=== PATIENT | male | born 1950 | race Caucasian/White ===

== ENCOUNTER 2022-10-05 13:39 | Emergency (ER) | payer OTHER ==
--- OUTSIDE RECORDS SUMMARY | 2022-10-05 13:42 | XMS REPORT | Continuity of Care Document ---
:1950 Author Organization [facility] t Address [address] [place]. [address] [place] [address] Care Team Providers Name Role [facility] Primary Care Physician Unavailable YONAS PENALOZA Attending Clinician Unavailable YONAS PENALOZA Attending Clinician Unavailable Yonas Penaloza MD Attending Clinician Payers Payer Name Policy Type Policy Number Effective Date Expiration Date [facility] [id number] 2022 00:00:00 Problems Condition Condition Condition Status Onset Resolution Last Treating Co mments Source Name Details Category Date Date Treatment Clinician Date No known No known Disease Unive rs active active ity of problems problems [facility] Allergies, Adverse Reactions, Alerts Allergy Allergy Status Severity Reaction(s) Onset Inactive Treating Comm ents Source Name Type Date Date Clinician NO KNOWN Drug Active Univers ALLERGIE Class ity of S [facility] Social History Social Habit Start Date Stop Date Quantity Comments Source History of tobacco Cigarette Smoker University of use [facility] Exposure to 2022-02-04 2022-02-14 Not sure [facility] SARS-CoV-2 (event) 00:00:00 13:08:00 [facility] Cigarettes smoked 2022-02-14 2022-02-14 Univers ity of current (pack per 00:00:00 00:00:00 ) - Reported Branch Cigarette 2022-02-14 2022-02-14 University of pack-years 00:00:00 00:00:00 [facility] Alcohol intake 2022-02-14 2022-02-14 Ex-drinker University 00:00:00 00:00:00 (finding) [facility] Sex Assigned At [birth year] Universit y of 00:00:00 00:00:00 [facility] Smoking Status Start Date Stop Date Source Smokes tobacco daily 2022-02-14 00:00:00 Univers ity of [facility] Medications Ordered Filled Start Stop Current Ordering Indication Dosage Frequency Signature Comments Components Source Medication Medication Date Date Medication? Clinician (SIG) Name Name atorvastati 0 Yes 20mg Take 20 mg Univers n 20 mg 9-27 by mouth ity of tablet 13:33: at [place] [address] bedtime. Medical Branch donepeziL 0 Yes 10mg Take 10 mg Un jeffrey 10 mg 9-27 by mouth ity of tablet 13:33: at [place] [address] bedtime. Medical Branch finasteride 0 Yes 5mg Take 5 mg U nivers 5 mg tablet 9-27 by mouth ity of 13:33: in the [place] [address] morning. Medical Branch lisinopriL 2021-0 Yes 30mg Take 30 mg U nivers 30 mg 9-27 by mouth ity of tablet 13:33: in the [place] [address] morning. Medical Branch mirtazapine 2021-0 Yes 30mg Take 30 mg Univers 30 mg 9-27 by mouth ity of tablet 13:33: at [place] [address] bedtime. Medical Branch atorvastati 0 Yes 20mg Take 20 mg Univers n 20 mg 9-27 by mouth ity of tablet 13:33: at [place] [address] bedtime. Medical Branch donepeziL 2021-0 Yes 10mg Take 10 mg Un jeffrey 10 mg 9-27 by mouth ity of tablet 13:33: at [place] [address] bedtime. Medical Branch finasteride 2021-0 Yes 5mg Take 5 mg U nivers 5 mg tablet 9-27 by mouth ity of 13:33: in the [place] [address] morning. Medical Branch lisinopriL 2021-0 Yes 30mg Take 30 mg U nivers 30 mg 9-27 by mouth ity of tablet 13:33: in the [place] [address] morning. Medical Branch mirtazapine 2021-0 Yes 30mg Take 30 mg Univers 30 mg 9-27 by mouth ity of tablet 13:33: at [place] [address] bedtime. Medical Branch Vital Signs Vital Name Observation Time Observation Value Comments Source Systolic blood 2022-02-14 18:23:00 134 mm[Hg] Rustamer sity [facility] pressure [facility] Diastolic blood 2022-02-14 18:23:00 70 [facility]Hg[facility] Heart rate 2022-02-14 18:23:00 49 /min [facility] Body height 2022-02-14 18:23:00 188 cm [facility] Body weight 2022-02-14 18:23:00 69.854 kg [facility] BMI 2022-02-14 18:23:00 19.77 kg/m2 [facility] Oxygen saturation 2022-02-14 18:23:00 96 /min [facility] in Arterial blood [facility] anch by Pulse oximetry Procedures This patient has no known procedures. Encounters Start End Encounter Admission Attending Care Care Encounter Source Date/Time Date/Time Type Type Clinicians Facility Department ID 2022-02-14 2022-02-14 Outpatient R YONAS PENALOZA [facility] [id number] Univers 13:40:00 15:27:15 YONAS PENALOZA ely [facility] 2022-02-14 2022-02-14 Office Tremaine SDKENYATTA [id number] Univers 13:40:00 15:27:15 Visit [facility] [id number] [facility] [id number] Chencho as AZEEM?BLEA [id number] Ak kameron ALTMAN [address] [place] [address] MEDICAL OFFICE BUILDING Results This patient has no known results.
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
--- NOTE | 2022-10-05 13:56 | ER ---
Nurse's Notes [facility] Name: Milton Al Age: 72 yrs Sex: Male : 1950 Arrival Date: 10/05/2022 Time: 13:39 Bed IW2 Private MD: Diagnosis: Dementia in other diseases classified elsewhere with behavioral disturbance Presentation: 10/05 13:43 Ebola Screen: Patient denies travel to an Ebola-affected area in the 21 days before ll1 illness onset. Initial Sepsis Screen: Does the patient meet any 2 criteria? No. Patient's initial sepsis screen is negative. Does the patient have a suspected source of infection? No. Patient's initial sepsis screen is negative. Risk Assessment: Do you want to hurt yourself or someone else? Patient reports no desire to harm self or others. Onset of symptoms was October 05, 2022. 13:43 Method Of Arrival: EMS ll1 13:43 Acuity: SHINE 5 ll1 13:44 Chief complaint: Patient states: Has dementia. Was pulled over by P.D.. No complaints ll1 or injuries. 13:54 Coronavirus screen: At this time, the client does not indicate any symptoms associated ll1 with coronavirus-19. Triage Assessment: 13:53 General: Appears in no apparent distress. Behavior is calm, cooperative, appropriate ll1 for age. Pain: Denies pain. Historical: - Allergies: 13:43 No Known Allergies; ll1 - PMHx: 13:43 Dementia; Hypertensive disorder; ll1 - Immunization history:: Adult Immunizations up to date. - Social history:: Smoking status: unknown. Screenin:53 [facility] ED Fall Risk Assessment (Adult) Confusion or Disorientation Yes (5 pts) ll1 Score/Fall Risk Level 3 or more points = High Risk Oriented to surroundings, Maintained a safe environment, Educated pt \T\ family on fall prevention, incl call for assistance when getting out of bed, Provided non-skid footwear, Hourly rounding (assess needs \T\ fall precautionary measures) done. Abuse screen: Denies threats or abuse. Nutritional screening: No deficits noted. Tuberculosis screening: No symptoms or risk factors identified. Assessment: 13:52 Reassessment: No changes from previously documented assessment. Patient and/or family ll1 updated on plan of care and expected duration. Pain level reassessed. Seen by SPOOL WORKER and POA. Normal for patient. Left with verbal instructions only. Vital Signs: 13:54 ll1 13:54 stable for EMS ll1 ED Course: 13:41 Patient arrived in ED. kb 13:42 Abby Penaloza FNP-C [facility] kb 13:42 Karl Albert MD is Attending Physician. kb 13:43 Arm band placed on Patient placed in an exam room, on a stretcher. ll1 13:44 Triage completed. ll1 13:53 Patient has correct armband on for positive identification. Bed in low position. Call ll1 light in reach. Cardiac monitoring not applicable on this patient. 13:54 No provider procedures requiring assistance completed. Patient did not have IV access ll1 during this emergency room visit. Administered Medications: No medications were administered Medication: 13:55 VIS not applicable for this client. ll1 Outcome: 13:42 Discharge ordered by . kb 13:54 Discharged to home ambulatory. ll1 13:54 Condition: stable 13:54 Discharge instructions given to patient, family, Instructed on discharge instructions, follow up and referral plans. Demonstrated understanding of instructions, follow-up care, left without signing discharge instrucions. 13:55 Patient left the ED. ll1 Signatures: Abby Penaloza FNP-C FNP-Christina Steiner, RN RN ll1
== END 2022-10-05 13:55 | disposition home or self-care (01) ==
LOC: ER 13:39
DX: R41.82 Altered mental status, unspecified (principal); F02.818 Dementia in other diseases classified elsewhere, unspecified severity, with other behavioral disturbance; I10 Essential (primary) hypertension
CPT/HCPCS: 99283

== ENCOUNTER 2022-10-25 12:07 | Inpatient (IN) | payer OTHER ==
--- OUTSIDE RECORDS SUMMARY | 2022-10-25 12:32 | XMS REPORT | Continuity of Care Document ---
:1950 Author Organization [facility] t Address [address] [place] [address] [place] [id number] Care Team Providers Name Role [facility] Primary Care Physician Unavailable YONAS PENALOZA Attending Clinician Unavailable YONAS PENALOZA Attending Clinician Unavailable Yonas Penaloza MD Attending Clinician Payers Payer Name Policy Type Policy Number Effective Date Expiration Date [facility] [id number] 2022 00:00:00 Problems Condition Condition Condition Status Onset Resolution Last Treating Co mments Source Name Details Category Date Date Treatment Clinician Date No known No known Disease Unive rs active active ity of problems problems [facility] Allergies, Adverse Reactions, Alerts Allergy Allergy Status Severity Reaction(s) Onset Inactive Treating Comm ents Source Name Type Date Date Clinician NO KNOWN Drug Active Univers ALLERGIE Class ity of S [facility] Social History Social Habit Start Date Stop Date Quantity Comments Source History of tobacco Cigarette Smoker University of use [facility] Exposure to 2022-02-04 2022-02-14 Not sure [facility] SARS-CoV-2 (event) 00:00:00 13:08:00 [facility] Cigarettes smoked 2022-02-14 2022-02-14 Univers ity of current (pack per 00:00:00 00:00:00 ) - Reported Branch Cigarette 2022-02-14 2022-02-14 University of pack-years 00:00:00 00:00:00 [facility] Alcohol intake 2022-02-14 2022-02-14 Ex-drinker University 00:00:00 00:00:00 (finding) [facility] Sex Assigned At [birth year] Universit y of 00:00:00 00:00:00 [facility] Smoking Status Start Date Stop Date Source Smokes tobacco daily 2022-02-14 00:00:00 Univers ity of [facility] Medications Ordered Filled Start Stop Current Ordering Indication Dosage Frequency Signature Comments Components Source Medication Medication Date Date Medication? Clinician (SIG) Name Name atorvastati Yes 20mg Take 20 mg Univers n 20 mg 9-27 by mouth ity of tablet 13:33: at [place] [address] bedtime. Medical Branch donepeziL 0 Yes 10mg Take 10 mg Un jeffrey 10 mg 9-27 by mouth ity of tablet 13:33: at [place] [address] bedtime. Medical Branch finasteride 0 Yes 5mg Take 5 mg U nivers 5 mg tablet 9-27 by mouth ity of 13:33: in the [place] [address] morning. Medical Branch lisinopriL 2021-0 Yes 30mg Take 30 mg U nivers 30 mg 9-27 by mouth ity of tablet 13:33: in the [place] [address] morning. Medical Branch mirtazapine 2021-0 Yes 30mg Take 30 mg Univers 30 mg 9-27 by mouth ity of tablet 13:33: at [place] [address] bedtime. Medical Branch atorvastati 0 Yes 20mg Take 20 mg Univers n 20 mg 9-27 by mouth ity of tablet 13:33: at [place] [address] bedtime. Medical Branch donepeziL 2021-0 Yes 10mg Take 10 mg Un jeffrey 10 mg 9-27 by mouth ity of tablet 13:33: at [place] [address] bedtime. Medical Branch finasteride 2021-0 Yes 5mg Take 5 mg U nivers 5 mg tablet 9-27 by mouth ity of 13:33: in the [place] [address] morning. Medical Branch lisinopriL 2021-0 Yes 30mg Take 30 mg U nivers 30 mg 9-27 by mouth ity of tablet 13:33: in the [place] [address] morning. Medical Branch mirtazapine 2021-0 Yes 30mg Take 30 mg Univers 30 mg 9-27 by mouth ity of tablet 13:33: at [place] [address] bedtime. Medical Branch Vital Signs Vital Name Observation Time Observation Value Comments Source Systolic blood 2022-02-14 18:23:00 134 mm[Hg] Wilbur sitely [facility] Diastolic blood 2022-02-14 18:23:00 70 mm[Hg] Lilliana rsmariya [facility] Heart rate 2022-02-14 18:23:00 49 /min [facility] Body height 2022-02-14 18:23:00 188 cm [facility] Body weight 2022-02-14 18:23:00 69.854 kg [facility] BMI 2022-02-14 18:23:00 19.77 kg/m2 [facility] Oxygen saturation 2022-02-14 18:23:00 96 /min [facility] in Arterial blood [facility] anch by Pulse oximetry Procedures This patient has no known procedures. Encounters Start End Encounter Admission Attending Care Care Encounter Source Date/Time Date/Time Type Type Clinicians Facility Department ID 2022-02-14 2022-02-14 Outpatient R YONAS PENALOZA [facility] [id number] Univers 13:40:00 15:27:15 YONAS PENALOZA [facility] 2022-02-14 2022-02-14 Office Tremaine [facility] [id number] Univers 13:40:00 15:27:15 Visit Yonas [facility] [id number] mariya issa [facility] [id number] Chencho as AZEEM?BLEA [id number] Ri [address] MEDICAL OFFICE BUILDING Results This patient has no known results.
[2022-10-25] MEDS ORDERED: MORPHINE 4 MG/ML SYR ONE ×2 (12:43→16:55)
[2022-10-25] MEDS ORDERED: ONDANSETRON 4 MG/2 ML VIAL ONE (12:43)
[2022-10-25 13:09] LABS: Absolute Lymphocytes (CBC) 1.1 K/uL (0.7-4.9); Hematocrit 35.2 % (39.6-49.0); Lymphocytes % 7.4 % (15.3-44.8); MCV 98.8 fL (80-100); MPV 8.4 fL (7.6-11.3); RBC Red Blood Cell Count 3.56 M/uL (4.33-5.43)
[2022-10-25 13:15] LABS: Protime INR 1.02
[2022-10-25 13:20] LABS: Potassium 4.4 mEq/L (3.5-5.1)
[2022-10-25 13:53] LABS: Blood Morphology Comment NOT SEEN (NOT SEEN); Platelet Estimate ADEQ; White Blood Cell Scan OK (OK)
--- NOTE | 2022-10-25 14:19 | EDPHYS ---
Physician Documentation [facility] Name: Milton Al Age: 72 yrs Sex: Male : 1950 Arrival Date: 10/25/2022 Time: 12:07 Bed 26 Private MD: ED Physician Haja Redding Historical: - Allergies: 10/25 12:13 No Known Allergies; kc6 - PMHx: 12:13 Dementia; Hypertensive disorder; prostate problems; Hypercholesterolemia; kc6 - PSHx: 12:13 None; kc6 - Immunization history:: Adult Immunizations unknown. - Social history:: Smoking status: unknown. Vital Signs: 12:11 BP 149 / 43; Pulse 90; Resp 18 S; Temp 98.6(O); Pulse Ox 98% on R/A; kc6 13:35 BP 133 / 60; Pulse 51; Resp 17 S; Pulse Ox 99% on R/A; kc6 MDM: 12:22 Patient medically screened. [facility] 10/25 12:30 Order name: CBC with Diff; Complete Time: 13:55 [facility] 10/25 12:30 Order name: BMP; Complete Time: 13:34 [facility] 10/25 12:30 Order name: PT-INR; Complete Time: 13:34 [facility] 10/25 12:33 Order name: CPK; Complete Time: 14:25 [facility] 10/25 13:54 Order name: CBC Smear Scan; Complete Time: 13:55 [facility] 10/25 17:00 Order name: Phosphorus; Complete Time: 17:04 [facility] 10/25 17:00 Order name: Magnesium; Complete Time: 17:04 [facility] 10/25 17:10 Order name: Hemoglobin A1c; Complete Time: 17:14 [facility] 10/25 18:50 Order name: Urinalysis w/ reflexes; Complete Time: 08:02 [facility] 10/26 02:47 Order name: CBC with Automated Diff; Complete Time: 08:02 [facility] 10/26 02:48 Order name: Basic Metabolic Panel; Complete Time: 08:02 [facility] 10/26 02:48 Order name: Lipid Profile; Complete Time: 08:02 [facility] 10/25 12:31 Order name: Pelvis XRAY; Complete Time: 14:34 [facility] 10/25 12:31 Order name: Femur Left XRAY; Complete Time: 14:34 [facility] 10/26 07:53 Order name: RAD; Complete Time: 08:02 [facility] 10/25 16:29 Order name: Heart Healthy EDMS 10/25 12:30 Order name: Saline Lock; Complete Time: 12:56 jmm Administered Medications: 12:56 Drug: morphine IVP or IV 4 mg Route: IVP; Infused Over: 4 mins; Site: left antecubital; kc6 14:31 Follow up: Response: No adverse reaction; Pain is decreased; RASS: Alert and Calm (0) kc6 12:56 Drug: Ondansetron IVP 4 mg Route: IVP; Site: left antecubital; kc6 14:31 Follow up: Response: No adverse reaction kc6 Disposition Summary: 10/25/22 14:18 Hospitalization Ordered Hospitalization Status: Inpatient Admission [facility] Provider: Pravin Redding Condition: Stable jmm Problem: new jmm Symptoms: are unchanged jmm Bed/Room Type: Standard [facility] Location: [facility] ER HOLD(10/25/22 18:51) Room Assignment: ERHOLD-(10/25/22 18:51) iw Diagnosis - Left proximal femur fracture jm Forms: - Medication Reconciliation Form jmm - SBAR form [facility] Signatures: Dispatcher [employer] EDMS Jamarcus Felder PA PA jmm Williams, Irene, RN RN iw Mine Kincaid RN RN kc6 Corrections: (The following items were deleted from the chart) 18:51 14:18 Telemetry/MedSurg (Inpatient) [facility] 18:51 14:18 [facility] iw
--- NOTE | 2022-10-25 14:19 | ER ---
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 pt is unable to recall if he fell due to hx of dementia but reports working in the yard frequently. BGL en route 118. Coronavirus screen: At this time, the client does not indicate any symptoms associated with coronavirus-19. Ebola Screen: No symptoms or risks identified at this time. Initial Sepsis Screen: Does the patient meet any 2 criteria? Altered Mental Status. Does the patient have a suspected source of infection? No. Patient's initial sepsis screen is negative. Risk Assessment: Do you want to hurt yourself or someone else? Patient reports no desire to harm self or others. Onset of symptoms was October 25, 2022. 12:11 Method Of Arrival: EMS: [facility] kc6 12:11 Acuity: SHINE 3 kc6 Triage Assessment: 12:13 General: Appears in no apparent distress. comfortable, Behavior is calm, cooperative, kc6 appropriate for age. Pain: Complains of pain in left leg. EENT: No signs and/or symptoms were reported regarding the EENT system. Neuro: Houser Agitation-Sedation Scale (RASS): 0 - Alert and Calm Level of Consciousness is awake, alert, obeys commands, Oriented to person, situation. Cardiovascular: Capillary refill < 3 seconds. Respiratory: Airway is patent Trachea midline Respiratory effort is even, unlabored, Respiratory pattern is regular, symmetrical. GI: No signs and/or symptoms were reported involving the gastrointestinal system. : No signs and/or symptoms were reported regarding the genitourinary system. Derm: No signs and/or symptoms reported regarding the dermatologic system. Skin is intact, Skin is pink, warm \T\ dry. Musculoskeletal: No signs and/or symptoms reported regarding the musculoskeletal system. Circulation, motion, and sensation intact. Capillary refill < 3 seconds, Range of motion: intact in all extremities. Historical: - Allergies: 12:13 No Known Allergies; kc6 - PMHx: 12:13 Dementia; Hypertensive disorder; prostate problems; Hypercholesterolemia; kc6 - PSHx: 12:13 None; kc6 - Immunization history:: Adult Immunizations unknown. - Social history:: Smoking status: unknown. Screenin:14 [facility] ED Fall Risk Assessment (Adult) History of falling in the last 3 months, kc6 including since admission No falls in past 3 months (0 pts) Confusion or Disorientation Yes (5 pts) Intoxicated or Sedated No (0 pts) Impaired Gait No (0 pts) Mobility Assist Device Used No (0 pt) Altered Elimination No (0 pt) Score/Fall Risk Level 3 or more points = High Risk Oriented to surroundings, Maintained a safe environment, Educated pt \T\ family on fall prevention, incl call for assistance when getting out of bed, Assessed \T\ reinforced patient's understanding of fall precautions, Hourly rounding (assess needs \T\ fall precautionary measures) done. Abuse screen: Denies threats or abuse. Denies injuries from another. Nutritional screening: No deficits noted. Tuberculosis screening: No symptoms or risk factors identified. Assessment: 12:14 Reassessment: please see triage assesment. kc6 13:14 Reassessment: Patient appears in no apparent distress at this time. No changes from 6 previously documented assessment. Patient and/or family updated on plan of care and expected duration. Pain level reassessed. 14:13 Reassessment: Patient appears in no apparent distress at this time. No changes from 6 previously documented assessment. Patient and/or family updated on plan of care and expected duration. Pain level reassessed. Vital Signs: 12:11 BP 149 / 43; Pulse 90; Resp 18 S; Temp 98.6(O); Pulse Ox 98% on R/A; kc6 13:35 BP 133 / 60; Pulse 51; Resp 17 S; Pulse Ox 99% on R/A; kc6 ED Course: 12:11 Patient arrived in ED. kc6 12:11 Jamarcus Felder PA is PHCP. [facility] 12:11 Haja Redding MD is Attending Physician. [facility] 12:12 Triage completed. kc6 12:13 Arm band placed on. kc6 12:14 Patient has correct armband on for positive identification. Bed in low position. Call kc6 light in reach. Side rails up X2. Adult w/ patient. 12:32 Mine Kincaid, RN is Primary Nurse. kc6 12:56 Inserted saline lock: 22 gauge in left antecubital area, using aseptic technique. Blood kc6 collected. 13:41 Pelvis XRAY In Process Unspecified. EDMS 13:41 Femur Left XRAY In Process Unspecified. EDMS 13:42 initiated transfer to [facility]. bd 14:18 Pravin Redding MD is Hospitalizing Provider. [facility] 22:18 No provider procedures requiring assistance completed. Patient admitted, IV remains in aa9 place. Administered Medications: 12:56 Drug: morphine IVP or IV 4 mg Route: IVP; Infused Over: 4 mins; Site: left antecubital; kc6 14:31 Follow up: Response: No adverse reaction; Pain is decreased; RASS: Alert and Calm (0) kc6 12:56 Drug: Ondansetron IVP 4 mg Route: IVP; Site: left antecubital; kc6 14:31 Follow up: Response: No adverse reaction kc6 Medication: 22:18 VIS not applicable for this client. aa9 Outcome: 14:18 Decision to Hospitalize by Provider. jmm 22:19 Admitted to ER Hold. Please see [facility] for further documentation. aa9 22:19 Condition: stable 22:19 Instructed on the need for admit. 06 11:55 Patient left the ED. Signatures: Dispatcher [employer] EDMS Glendy Dalton Jamarcus Felder PA PA jmm Smirch, Shelby, RN RN Audra Pedroza RN RN 9 Mine Kincaid, АНДРЕЙ RN kc6 Corrections: (The following items were deleted from the chart) 10/25 14:31 13:14 Reassessment: Patient appears in no apparent distress at this time. No changes kc6 from previously documented assessment. Patient and/or family updated on plan of care and expected duration. Pain level reassessed. Patient is alert, oriented x 3, equal unlabored respirations, skin warm/dry/pink. kc6
--- NOTE | 2022-10-25 14:30 | RAD REPORT ---
EXAM DESCRIPTION: RAD - Pelvis - 10/25/2022 1:38 pm CLINICAL HISTORY: fall COMPARISON: Femur Left dated 10/25/2022 TECHNIQUE: Single AP view of the pelvis. FINDINGS: The visualized pelvic ring is intact. Impacted left midcervical distal cervical femoral ne ck fracture. Adjacent soft tissue swelling. Mild bilateral hip joint degenerative changes. Other pelv ic joints are unremarkable. Visualized aspects of the abdomen and soft tissues are unremarkable. IMPRESSION: Impacted left femoral neck fracture as above.
--- NOTE | 2022-10-25 14:31 | RAD REPORT ---
EXAM DESCRIPTION: RAD - Femur Left - 10/25/2022 1:39 pm CLINICAL HISTORY: fall, left hip pain COMPARISON: No comparisons TECHNIQUE: Left femur, 2 views. FINDINGS: Impacted left [id number]-[id number] cervical femoral neck fracture. There is no dislocation or pe riosteal reaction noted. No acute or suspicious bony finding. Vascular calcifications. Small scleroti c lesion in the distal femur most suggestive of a bone island. IMPRESSION: Impacted left mid to distal cervical femoral neck fracture.
[2022-10-25] MEDS ORDERED: ACETAMINOPHEN 325 MG TABLET PO PRN (16:22)
[2022-10-25] MEDS ORDERED: ONDANSETRON 4 MG/2 ML VIAL IV PRN (16:27)
--- NOTE | 2022-10-25 16:29 | P.HP ---
Certification for Inpatient Patient admitted to: Inpatient With expected LOS: >2 Midnights Patient will require the following post-hospital care: None Practitioner: I am a practitioner with admitting privileges, knowledge of patient current condition, hospital course, and medical plan of care. Services: Services provided to patient in accordance with Admission requirements found in Title 42 Section 412.3 of the Code of Federal Regulations <SantoselissaDanilosveta Moeller - Last Filed: 10/25/22 21:19> Patient History Date of Service: 10/25/22 Reason for admission: Left leg pain. History of Present Illness: Patient is a 72-year-old male with a past medical history significant for dementia, hypertension, hyperlipidemia, nicotine dependence who presents with complaint of left hip pain. Patient is alert and oriented x1. Patient is confused at baseline and unable to provide any history. Per patient's daughter report patient was found sitting on a ladder this morning. Family reported that patient fell and crawled to a ladder where he sat down. 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 Patient's daughter was informed and daughter came and found patient sitting on the ladder. Family reported that patient is able to stand up but unable to walk. Patient denies hitting his head or losing consciousness. Patient unable to rate severity or quality of pain in the left hip. No other signs and symptoms reported. Patient was brought to the hospital for medical evaluation. - Past Medical/Surgical History -: BPH -: PIYUSH -: HLD -: HTN Past Surgical History: Unable to obtain - Family History Family History: Reviewed- Non-Contributory - Social History Smoking Status: Heavy Tobacco smoker (>10 cigarettes/day) Smoking therapy provided: Yes Patient receptive to therapy: No Alcohol use: Yes CD- Drugs: No Caffeine use: Yes Place of Residence: Home <Tasha Freedman - Last Filed: 10/25/22 21:19> Date of Service: 10/26/22 <Pravin Redding - Last Filed: 10/26/22 07:13> Allergies No Known Allergies Allergy (Unverified 10/25/22 17:21) Home Medications: Atorvastatin Calcium 20 mg PO DAILY 10/25/22 Donepezil HCl [Aricept] 10 mg PO DAILY 06/07/23 Ferrous Sulfate [Iron] 325 mg PO BID 10/25/22 Finasteride [Proscar*] 5 mg PO DAILY 10/25/22 Lisinopril [Zestril] 30 mg PO DAILY 10/25/22 Tamsulosin HCl [Flomax] 0.4 mg PO DAILY 10/25/22 Review of Systems is unable to be obtained (Patient is confused at baseline) <Tasha Freedman - Last Filed: 10/25/22 21:19> Physical Examination - Physical Exam General: Alert, In no apparent distress, Oriented x3, Cooperative HEENT: Atraumatic, PERRLA, Mucous membr. moist/pink, EOMI, Sclerae nonicteric Neck: Supple, 2+ carotid pulse no bruit, No LAD, Without JVD or thyroid abnormality Respiratory: Clear to auscultation bilaterally, Normal air movement Cardiovascular: No edema, Regular rate/rhythm, Normal S1 S2 Capillary refill: <2 Seconds Gastrointestinal: Normal bowel sounds, Soft and benign, No tenderness Musculoskeletal: Tenderness (Left hip ) Integumentary: No rashes, No significant lesion Neurological: Normal speech, Normal tone, Normal affect Lymphatics: No axilla or inguinal lymphadenopathy - Studies Laboratory Data (last 24 hrs) 10/25/22 12:52: PT 11.2, INR 1.02 10/25/22 12:52: Sodium 137, Potassium 4.4, BUN 29 H, Creatinine 0.89, Glucose 109 H 10/25/22 12:52: WBC 14.60 H, Hgb 11.6 L, Hct 35.2 L, Plt Count 218 <Tasha Freedman - Last Filed: 10/25/22 21:19> - Studies Laboratory Data (last 24 hrs) 10/25/22 12:52: Phosphorus 2.6, Magnesium 2.1 10/25/22 12:52: PT 11.2, INR 1.02 10/25/22 12:52: Sodium 137, Potassium 4.4, BUN 29 H, Creatinine 0.89, Glucose 109 H 10/25/22 12:52: WBC 14.60 H, Hgb 11.6 L, Hct 35.2 L, Plt Count 218 <Pravin Redding - Last Filed: 10/26/22 07:13> Assessment and Plan - Plan --Left femoral femur fracture. Imaging indicates " impacted left femoral neck fracture". Orthopedic surgeon consulted. We will keep patient NPO. We will await further recommendation from surgeon. --Acute pain. We will manage pain with current pain medication regimen. --Dementia. Continue home medication. --PIYUSH. Continue ferrous sulfate. --HLD. Continue statin. --BPH. Continue Flomax. --Nicotine dependence. Patient placed on nicotine patch. Unable to conduct teaching due to patient's mental status. --Leukocytosis. Likely reactive. We will continue to monitor WBC. --DVT prophylaxis with SCDs. Discharge Plan: Home Plan to discharge in: Greater than 2 days - Advance Directives Does patient have a Living Will: No Does patient have a Durable POA for Healthcare: Yes - Code Status/Comfort Care Code Status Assessed: Yes Physician Review: Patient Assessed, Agree with Above Assessment and Plan Critical Care: No <Tasha Freedman - Last Filed: 10/25/22 21:19> - Plan Patient is poor historian, history obtained from family as noted above. Limited medical records available to us at this time. Based on history provided, functional level, and current labs. Patient is low / class I risk for major cardiac event per revised cardiac risk index monitor on tele, no further testing pre-operative at this time indicated <Pravin Redding - Last Filed: 10/26/22 07:13>
[2022-10-25] MEDS: MORPHINE 4 MG/ML SYR IV PRN (16:50)
[2022-10-25 17:00] LABS: Magnesium 2.1 mg/dL (1.6-2.4); Phosphorus 2.6 mg/dL (2.5-4.9)
[2022-10-25 17:19] VITALS: BMI 19.5
[2022-10-25 18:50] LABS: Calcium Oxalate Crystals- Ur Few /HPF (None Seen); Urine Bacteria None Seen /HPF (<20); Urine Bilirubin NEGATIVE (Negative); Urine Blood Negative (Negative); Urine Clarity Clear (Clear); Urine Color Yellow (Yellow); Urine Glucose NEGATIVE (Negative); Urine Mucus 2+ /HPF (None Seen); Urine Protein TRACE (Negative); Urine Urobilinogen 1+ (Normal); Urine pH 5.5 (5.0-7.0)
[2022-10-25] MEDS ORDERED: HYDRALAZINE HCL 20 MG/ML VIAL IV PRN (21:15)
[2022-10-26 02:37] LABS: Absolute Lymphocytes (CBC) 1.8 K/uL (0.7-4.9); Hematocrit 33.9 % (39.6-49.0); MCV 98.5 fL (80-100); MPV 8.7 fL (7.6-11.3); RBC Red Blood Cell Count 3.44 M/uL (4.33-5.43)
[2022-10-26] MEDS ORDERED: NA CHLORIDE 0.9% 1,000 ML ONE (02:38)
[2022-10-26] MEDS: NA CHLORIDE 0.9% 1,000 ML IV SCH ×3 (03:05→23:51)
--- NOTE | 2022-10-26 07:38 | P.PN ---
Date of Service: 10/26/22 Subjective: feeling a little better today slight confusion; responding appropriately to most questions upper left leg feels sore otherwise no new / worsening problems waiting for surgery today ROS: 10 point ROS as noted above, otherwise negative Physical Exam: GEN: Alert, oriented x2, NAD, Bear HEENT: Normal conjunctiva, sclera anicteric CV: Regular rate and rhythm, no edema Pulm: Nonlabored respirations on room air ABD: Soft, nontender, nondistended MSK: left hip tenderness Neuro: Normal speech, normal affect Bear in place vitals reviewed Problem List: Left femoral femur fracture. Imaging indicates " impacted left femoral neck fracture" Ortho consulted NPO for tentative surgery today 10/26 per history obtained, labs / imaging, patient on low risk side for cardiac event in perioperative period continue current pain medication Leukocytosis likely reactive. monitor WBC Dementia. Continue home medication. Iron deficient anemia Continue ferrous sulfate. Hyperlipidemia. Continue statin. BPH. Continue Flomax. Nicotine dependence. Patient placed on nicotine patch. VTE: SCD for surgery Code: Full Dispo: Home vs SNF ~2-3 days
--- NOTE | 2022-10-26 07:53 | RAD REPORT ---
EXAM DESCRIPTION: Bruce Single View10/26/2022 7:35 am CLINICAL HISTORY: pre-op. Hypertension COMPARISON: No comparisons TECHNIQUE: Portable AP view of the chest. FINDINGS: Small faint nodular peripheral upper to mid left lung opacity, could represent a pulmonary nodule. The lungs are otherwise clear. No pneumothorax or effusion. The cardiomediastinal contours are unremarkable. IMPRESSION: No acute cardiopulmonary process. Possible small left peripheral upper to mid lung nodu le. If the patient satisfy criteria for lung screening involvement, this can be further evaluated on lung screening CT.
[2022-10-26] MEDS: ATORVASTATIN 20 MG TAB PO SCH (08:50)
[2022-10-26] MEDS: DONEPEZIL HCL 5 MG TAB PO SCH (08:50)
[2022-10-26] MEDS: FINASTERIDE 5 MG TAB PO SCH (08:50)
[2022-10-26] MEDS: FERROUS SULFATE 325 MG TAB PO SCH ×2 (08:50→21:22)
[2022-10-26] MEDS: TAMSULOSIN 0.4 MG SR CAP PO SCH (09:00)
[2022-10-26] MEDS ORDERED: NICOTINE 21 MG/PAT TD ONE (09:26)
[2022-10-26] MEDS: NICOTINE 21 MG/PAT TD SCH (09:44)
[2022-10-26] MEDS ORDERED: LIDOCAINE 2% MPF 5 ML VIAL ONE (10:51)
[2022-10-26] MEDS ORDERED: propofoL 200 MG/20 ML VIAL IV ONE ×4 (10:51→12:31)
[2022-10-26] MEDS ORDERED: Ringers Lactate 1,000 ML IV ONE ×2 (10:52→12:51)
[2022-10-26] MEDS ORDERED: dexAMETHasone 10 MG/ML VIAL ONE (11:28)
[2022-10-26] MEDS ORDERED: EPINEPHRINE/PF 1 MG/ML AMP ONE (11:28)
[2022-10-26] MEDS ORDERED: ROPLVACAINE HCL 20 ML ONE (11:29)
[2022-10-26] MEDS ORDERED: ROPIVACAINE HCL 20 ML ONE (11:29)
[2022-10-26] MEDS ORDERED: LIDOCAINE 1% MPF 2 ML AMPULE ONE (11:29)
[2022-10-26] MEDS ORDERED: TRANEXAMIC ACID 1,000 MG/10 ML VIAL IV ONE (11:34)
[2022-10-26] MEDS ORDERED: CEFAZOLIN SODIUM 2 GM/VIAL ONE (11:34)
--- NOTE | 2022-10-26 12:56 | P.BOP ---
Preoperative diagnosis: left IT fracture Postoperative diagnosis: same Primary procedure: SUKI nail left hip Estimated blood loss: 100 ccs Anesthesia: General Complications: None Transferred to: Recovery Room Condition: Good
--- NOTE | 2022-10-26 13:07 | RAD REPORT ---
EXAM DESCRIPTION: RAD - Hip in OR Left 2 View - 10/26/2022 12:57 pm CLINICAL HISTORY: LEFT HIP RODDING COMPARISON: No comparisons FINDINGS: Fluoroscopy time 0.8 minutes.
--- NOTE | 2022-10-26 14:04 | OP ---
Date of Procedure: 10/26/2022 Surgeon: Brandon Wild MD Preoperative Diagnosis: Left intertrochanteric fracture. Postoperative Diagnosis: Left intertrochanteric fracture. Procedure: Left intertrochanteric fracture closed reduction with intramedullary erma fixation. Estimated Blood Loss: 100 cc. Affixus nail system from [employer] was used. Complications: There were no complications. Specimen: No pathology specimen sent. Indications For Operation: Mr. Al is a 72-year-old male, who unfortunately suffers dementia. He fell injuring his left lower extremity. He was then brought to the emergency department where x-rays were taken, which demonstrated a slightly displaced left intertrochanteric fracture. Risks, benefit s, and alternatives of different methods of treating this have been discussed with the family and the patient present; however, he does have a significant amount of dementia. The family member who has power of associate attorney says he understands things as presented and agrees to proceed. Description Of Procedure: The patient was taken to the operating room and placed in supine position. Anesthesia was obtained by the Anesthesia staff. Following this, he was then appropriately positio virgil on the fracture table. Left lower extremity was then prepped and draped in the usual sterile fas hion procedure. C-arm was guaranteed to get good AP and lateral views. After this, the greater troc hanter was marked out. A vertical incision was made carefully through the skin and soft tissues. A finger was placed for palpation of the greater trochanter, which did appear to be fractured. A start ing point was made, which was just a little bit more medial than the trochanter and the guide pin was then easily placed across the fracture site. Following this, the hand candle molder was used to go past th e lesser trochanter. After this, a size 13 x 130 Affixus nail was then placed to appropriate depth. Cephalomedullary screws were placed in standard fashion. This was followed by placement of a distal interlocking screw. The cephalomedullary screws with other screws were examined under biplanar C-ar m radiography to ensure good placement. After this, the wounds were irrigated and fascia was closed using heavy Vicryl sutures followed by closure of the skin using Vicryl followed by christina. The pat ient was then taken to the recovery room. ELIZABETH Voice ID: [id number] Report ID: [id number]
--- NOTE | 2022-10-26 15:10 | CON ---
Date of Consultation: 10/25/2022 History Of Present Illness: This is my first time seeing this patient to my knowledge. He does have a history of dementia, but is normally ambulatory. Unfortunately, he started complaining of thigh p ain and decreased ability to ambulate and was brought to the emergency department. In the emergency department, he was complaining of thigh pain, but he is a poor historian because of his dementia. An x-ray was taken, which demonstrates an intertrochanteric fracture of the left hip. All his long bon es were palpated without any pain or crepitation with the exception of his left hip, which is painful to movement or manipulation. His daughter was there and she is able to give a good history. We spe ak with her at length and at this time risks, benefits, and alternatives of different methods of william ting this have been discussed with the family, also small discussion with the patient, although with his dementia, I am not sure how much he is able to understand, but daughter does have [id number] ey and says she understands things as presented. Assessment: This is a 72-year-old gentleman, who now has a left intertrochanteric fracture of the hi p. Plan: At this time, he will be seen by the hospitalist and I have discussed with the family our opti ons and we will most likely proceed on the with a closed reduction, intramedullary erma fixation o f the left hip. She says she understands things as presented. /PURNIMA Voice ID: [id number] Report ID: [id number]
[2022-10-26] MEDS: CEFAZOLIN 1 GM in NA CHLORIDE 0.9% 50 ML IVPB SCH (21:21)
[2022-10-26] MEDS: MORPHINE 4 MG/ML SYR IV PRN (21:22)
--- NOTE | 2022-10-26 23:36 | P.PN ---
Date of Service: 10/26/22 was called by nursing staff, patient reportedly had a fall from standing. Nurses heard the bed alarm and walked into the room patient was seen standing and fell forward landing on the floor. No loss of consciousness was reported, patient with skin tear to the left forearm which has been dressed, small hematoma above right eyebrow. Patient did have surgery for hip repair to the left hip earlier today. He does report some "soreness" in that hip. Will obtain CT head/C-spine, x-rays of the left hip.
[2022-10-26] MEDS: MELATONIN 5 MG TABLET PO PRN (23:54)
[2022-10-27] MEDS: NICOTINE 21 MG/PAT TD SCH ×2 (00:06→10:50)
[2022-10-27] MEDS: MORPHINE 4 MG/ML SYR IV PRN (03:43)
[2022-10-27] MEDS: CEFAZOLIN 1 GM in NA CHLORIDE 0.9% 50 ML IVPB SCH ×2 (04:40→11:15)
[2022-10-27] MEDS ORDERED: HALOPERIDOL LACT 5 MG/ML INJ IV ONE (05:23)
--- NOTE | 2022-10-27 07:06 | P.PN ---
Date of Service: 10/27/22 Subjective: patient was confused yesterday; was pulling his murillo frequently and noted blood in the urine and clots had a fall from standing unsupervised overnight; No loss of consciousness, skin tear to the left forearm, small hematoma above right eyebrow nursing noted increased hematuria; unable to irrigate - only 50% returning unable to deflate murillo balloon, cut line above valve without resolution ROS: 10 point ROS as noted above, otherwise negative Physical Exam: GEN: Alert, oriented x2, NAD, Murillo HEENT: Normal conjunctiva, sclera anicteric CV: Regular rate and rhythm, no edema Pulm: Nonlabored respirations on room air ABD: Soft, mild suprapubic tenderness, bladder fullness MSK: left hip tenderness, dressing in place on left forearm/right eyebrow Neuro: Normal speech, normal affect Murillo in place; +dark hematuria in murillo. small amount of bright red blood in briefs vitals reviewed Problem List: Left femoral fracture s/p fall, now sp SUKI nail 10/26 urethra/bladder trauma urethra bleed Dementia, mild-mod iron deficiency anemia hyperlipidemia BPH nicotine dependence Left femoral fracture. Imaging indicates " impacted left femoral neck fracture" Ortho consulted s/p SUKI nail left hip 10/26 continue current pain medication Leukocytosis likely reactive. monitor WBC urethra/bladder trauma urethra bleed 10/26 pm - Patient had a fall from standing. Nurses heard the bed alarm and walked into the room patient was seen standing and fell forward landing on the floor. No loss of consciousness was reported, patient with skin tear to the left forearm which has been dressed, small hematoma above right eyebrow. CT head/C- spine, x-rays of the left hip ordered. Patient seemed confused and was pulling his murillo frequently and noted blood in the urine and clots. after fall, noted increase hematuria; unable to deflate murillo balloon CT noted murillo bulb in urethraa suspect patient pulled or during fall - lead to murillo pulled out and bulb pulled into urethra 6/9 am, able to deflate bulb using guide wire through bulb tubing, suspect some blockage. did not need to perforate bulb with guide wire murillo removed and replaced with 20fr coude, which was advanced to hub; had good return of ~1000ml of dark red/maroon colored urine. balloon inflated. patient denied any discomfort, and felt better there was some resistance with insertion, I performed bedside U/S after insertion, appeared that bulb may be in distal urethra. CT ordered for confirmation CT abdomen (10/27): Murillo catheter bulb is noted in the prostatic urethra. 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 Murillo catheter is in place with its tip barely entering the bladder lumen murillo bulb deflated and advanced, bedside U/S confirmed appropriate placement of bulb in bladder continue 60cc murillo irrigation q4h and PRN until urine clear/light pink no urology contracts specialist for next several days Dementia. Continue home medication. Iron deficiency anemia Continue ferrous sulfate. Hyperlipidemia. Continue statin. BPH. Continue Flomax. Nicotine dependence. nicotine patch. VTE: SCDs, hold off on lovenox at least 24hrs given bleed Code: Full Dispo: anticipate SNF ~3 days
[2022-10-27 07:42] LABS: Absolute Lymphocytes (CBC) 1.2 K/uL (0.7-4.9); Hematocrit 26.7 % (39.6-49.0); Lymphocytes % 9.7 % (15.3-44.8); MCV 97.9 fL (80-100); MPV 8.7 fL (7.6-11.3); RBC Red Blood Cell Count 2.72 M/uL (4.33-5.43)
[2022-10-27 07:50] LABS: Potassium 3.8 mEq/L (3.5-5.1)
[2022-10-27] MEDS ORDERED: KETAMINE HCL IN 0.9 % NACL 50 MG/5 ML SYRINGE IV ONE (07:50)
[2022-10-27] MEDS: NA CHLORIDE 0.9% 1,000 ML IV SCH ×4 (09:00→21:26)
[2022-10-27] MEDS ORDERED: ENOXAPARIN 30 MG/0.3 ML SQ SCH (09:00)
[2022-10-27 09:04] LABS: Absolute Lymphocytes (CBC) 1.1 K/uL (0.7-4.9); Hematocrit 26.9 % (39.6-49.0); Lymphocytes % 8.5 % (15.3-44.8); MCV 97.7 fL (80-100); MPV 8.4 fL (7.6-11.3); RBC Red Blood Cell Count 2.76 M/uL (4.33-5.43)
--- NOTE | 2022-10-27 10:27 | RAD REPORT ---
EXAM DESCRIPTION: CT - Abdomen Pelvis Wo Contrast - 10/27/2022 9:25 am CLINICAL HISTORY: Abdominal pain. Bear placement - balloon COMPARISON: Abdomen Pelvis W Contrast dated 10/27/2022 TECHNIQUE: CT imaging of the abdomen and pelvis was performed without contrast. Solid organ, bowel a nd vascular assessment is limited due to lack of IV and oral contrast. All CT scans are performed using dose optimization technique as appropriate and may include automated exposure control or mA/KV adjustment according to patient size. FINDINGS: The lower lung luciano are clear. The liver, spleen, pancreas, adrenal glands and kidneys are within normal limits for a limited non-co ntrast examination. No bowel obstruction, free air, free fluid or abscess. Moderate stool is retained throughout the colo n. The appendix is normal. Contrast fills the urinary bladder. There is a left posterior Hutch diverticulum noted measuring 4 cm . Bear catheter is in place with its tip barely entering the bladder lumen. The bulb appears to be w ithin the prostatic urethra. There are small adjacent air bubbles in the urethra. Orthopedic hardware is present proximal left femur. IMPRESSION: Bear catheter bulb is noted in the prostatic urethra. Small adjacent air bubbles probab ly related to previous urethral intervention. A limited non-contrast examination was performed as detailed. Findings discussed with Dr. Redding.
[2022-10-27] MEDS: FINASTERIDE 5 MG TAB PO SCH (10:50)
[2022-10-27] MEDS: ATORVASTATIN 20 MG TAB PO SCH (10:50)
[2022-10-27] MEDS: FERROUS SULFATE 325 MG TAB PO SCH ×2 (10:50→21:23)
[2022-10-27] MEDS: TAMSULOSIN 0.4 MG SR CAP PO SCH (10:51)
[2022-10-27] MEDS: DONEPEZIL HCL 5 MG TAB PO SCH (10:51)
[2022-10-27] MEDS: chlordiazePOXIDE HCl 5 MG CAP PO PRN ×2 (11:16→21:23)
[2022-10-27] MEDS: HYDROCODONE/APAP 5/325 MG TAB PO PRN (11:18)
[2022-10-27] MEDS: MELATONIN 5 MG TABLET PO PRN (21:23)
[2022-10-27 21:49] LABS: Hematocrit 25.7 % (39.6-49.0)
--- NOTE | 2022-10-28 07:00 | P.PN ---
Date of Service: 10/28/22 Subjective: feeling okay today; confused some bleeding from tip of penis per nurses overnight 99.6 temp today ROS: 10 point ROS as noted above, otherwise negative Physical Exam: GEN: Alert, oriented x2, NAD, Murillo HEENT: Normal conjunctiva, sclera anicteric CV: Regular rate and rhythm, no edema Pulm: Nonlabored respirations on room air ABD: Soft,nontender, nondistended MSK: left hip tenderness, dressing in place on left forearm/right eyebrow Neuro: Normal speech, normal affect Murillo in place; +light pinkish tinged urine in the tubing, dark in bag, small amount of red blood in briefs vitals reviewed Problem List: Left femoral fracture s/p fall, now sp SUKI nail 10/26 urethra/bladder trauma urethra bleed Dementia, mild-mod iron deficiency anemia hyperlipidemia BPH nicotine dependence Left femoral fracture Imaging indicates " impacted left femoral neck fracture" Ortho consulted s/p SUKI nail left hip 10/26 pain control Leukocytosis resolved fever POD 2, 100.6, no new/worsening symptos feeling better check CXR, incentive spirometry possibly atelectasis, possibly pyretic response to surgery monitor closely low threshold for antibiotics urethra/bladder trauma urethra bleed 10/26 pm - Patient had a fall from standing. Nurses heard the bed alarm and walked into the room patient was seen standing and fell forward landing on the floor. No loss of consciousness was reported, patient with skin tear to the left forearm which has been dressed, small hematoma above right eyebrow. CT head/C- spine, x-rays of the left hip ordered. Patient seemed confused and was pulling his murillo frequently and noted blood in the urine and clots. after fall, noted increase hematuria; unable to deflate murillo balloon CT noted murillo bulb in urethra suspect patient pulled or during fall - lead to murillo pulled out and bulb pulled into urethra 6/9 am, able to deflate bulb using guide wire through bulb tubing, suspect some blockage. did not need to perforate bulb with guide wire murillo removed and replaced with 20fr coude, which was advanced to hub; had good return of ~1000ml of dark red/maroon colored urine. balloon inflated. patient denied any discomfort, and felt better there was some resistance with insertion, I performed bedside U/S after insertion, appeared that bulb may be in distal urethra. CT ordered for confi rmation CT abdomen (10/27): Murillo catheter bulb is noted in the prostatic urethra. Small adjacent air bubbles probably related to previous urethral intervention a left posterior Hutch diverticulum noted measuring 4 cm. Murillo catheter is in place with its tip barely entering the bladder lumen murillo bulb deflated and advanced, bedside U/S confirmed appropriate placement of bulb in bladder continue 60cc murillo irrigation q4h and PRN until urine clear/light pink no urology consumer electronic retail specialist for next several days urine light pink to clear in tubing, andrew with red hue in bag start lovenox 6.10 Dementia. Continue home medication. Iron deficiency anemia Continue ferrous sulfate. Hyperlipidemia. Continue statin. BPH. Continue Flomax. Nicotine dependence. nicotine patch. VTE: lovenox Code: Full Dispo: anticipate SNF ~3 days
[2022-10-28 07:31] LABS: Absolute Lymphocytes (CBC) 1.2 K/uL (0.7-4.9); Hematocrit 25.5 % (39.6-49.0); Lymphocytes % 14.9 % (15.3-44.8); MCV 97.7 fL (80-100); MPV 8.8 fL (7.6-11.3); RBC Red Blood Cell Count 2.61 M/uL (4.33-5.43)
[2022-10-28 07:40] LABS: Albumin 2.5 g/dL (3.4-5.0); Bilirubin Total 0.5 mg/dL (0.2-1.0); Magnesium 1.9 mg/dL (1.6-2.4); Potassium 3.7 mEq/L (3.5-5.1); Protein, Total 5.7 g/dL (6.4-8.2)
[2022-10-28] MEDS: DONEPEZIL HCL 5 MG TAB PO SCH (08:15)
[2022-10-28] MEDS: TAMSULOSIN 0.4 MG SR CAP PO SCH (08:15)
[2022-10-28] MEDS: NICOTINE 21 MG/PAT TD SCH (08:15)
[2022-10-28] MEDS: FERROUS SULFATE 325 MG TAB PO SCH ×2 (08:15→22:34)
[2022-10-28] MEDS: FINASTERIDE 5 MG TAB PO SCH (08:15)
[2022-10-28] MEDS: ATORVASTATIN 20 MG TAB PO SCH (08:16)
[2022-10-28] MEDS ORDERED: POTASSIUM 25 MEQ EFFERV TAB PO ONE (09:00)
[2022-10-28] MEDS: chlordiazePOXIDE HCl 5 MG CAP PO PRN ×2 (16:50→23:29)
[2022-10-28] MEDS: ENOXAPARIN 40 MG/0.4 ML SQ SCH (17:36)
--- NOTE | 2022-10-28 19:00 | RAD REPORT ---
EXAM DESCRIPTION: RAD - Chest Single View - 10/28/2022 6:46 pm CLINICAL HISTORY: post-op fever COMPARISON: Chest Single View dated 10/26/2022; Abdomen Pelvis W Contrast dated 10/27/2022; Abdomen Pelvis Wo Contrast dated 10/27/2022 FINDINGS: Lines: None. Lungs: No evidence of edema or pneumonia. Upper lobe nodular opacity not as conspicuous as seen on th e prior. Pleural: No significant pleural effusions or pneumothorax. Cardiac: The heart size is within normal limits. Mediastinum: Within normal limits. Bones: No acute fractures. Other: None IMPRESSION: No acute cardiopulmonary disease. No significant change from prior.
[2022-10-28] MEDS: HYDROCODONE/APAP 5/325 MG TAB PO PRN (22:34)
--- NOTE | 2022-10-29 06:50 | P.PN ---
Date of Service: 10/29/22 Subjective: dementia, pulls at lines at times febrile yesterday (100.6), afebrile overnight/this morning no new/worsening symptoms increased red/blood in murillo per nursing staff received lovenox last night ROS: 10 point ROS as noted above, otherwise negative Physical Exam: GEN: Alert, oriented x2, NAD HEENT: Normal conjunctiva, sclera anicteric CV: Regular rate and rhythm, no edema Pulm: Nonlabored respirations on room air ABD: Soft,nontender, nondistended MSK: left hip dressing in place Neuro: Normal speech, normal affect : Murillo in place; +reddish/maroon urine in the murillo, small amount of red blood in briefs vitals reviewed Problem List: Left femoral fracture s/p fall, now s/p SUKI nail 10/26 Postoperative fever urethra/bladder trauma, acute urethra bleed, acute Dementia, mild-mod; chronic iron deficiency anemia, chronic hyperlipidemia BPH nicotine dependence Left femoral fracture, now s/p SUKI nail 10/26 s/p SUKI nail left hip 10/[address] Wild pain control, PT SCDs initially started and lovenox held for 24hrs due to hematuria Lovenox started 10/28 evening, with increased hematuria overnight after the following day Postoperative fever POD 2, 100.6, no new/worsening symptoms feeling better incentive spirometry CXR 10/28 - negative, stable from previous CXR possibly atelectasis, possibly pyretic response to surgery low threshold for antibiotics monitor closely; afebrile 10/29 urethra/bladder trauma urethra bleed Patient seemed confused and was pulling his murillo frequently and noted blood in the urine and clots. 10/26 pm - Patient had a fall from standing. Nurses heard the bed alarm and walked into the room patient was seen standing and fell forward landing on the floor. No LOC reported, skin tear to LEFT forearm, small hematoma above RIGHT eyebrow CT head / cspine without acute findings after fall, noted increase hematuria; unable to deflate murillo balloon CT noted murillo bulb in urethra suspect patient pulled or during fall - lead to murillo pulled out and bulb pulled into urethra 6/9 am, able to deflate bulb using guide wire through bulb tubing, suspect some blockage. did not need to perforate bulb with guide wire murillo removed and replaced with 20fr coude, which was advanced to hub; had good return of ~1000ml of dark red/maroon colored urine. balloon inflated. patient denied any discomfort, and felt better there was some resistance with insertion, I performed bedside U/S after insertion, appeared that bulb may be in distal urethra. CT ordered for confirmation CT abdomen (10/27): Murillo catheter bulb noted in prostatic urethra. Small adjacent air bubbles probably related to previous urethral intervention a left posterior Hutch diverticulum noted measuring 4 cm. Murillo catheter is in place with its tip barely entering the bladder lumen murillo bulb deflated and advanced, bedside U/S confirmed appropriate placement of bulb in bladder continue 60cc murillo irrigation q4h and PRN until urine clear/light pink no urology individual pension consultant for next several days 10/29 noted more blood in urine, more dark red, no longer light pink tinged; after starting lovenox the night before Hemoglobin down to 8.1, will transfuse 1 unit PRBC (10/29) Discussed with family regarding risk/benefits, continue irrigation. If urine clears up, will continue with Lovenox. If urine continues to have dark red blood or worsening bleeding, will switch back to SCDs Dementia. Continue donepezil Iron deficiency anemia, chronic Continue ferrous sulfate. Hyperlipidemia. Continue statin. BPH. Continue Flomax. Nicotine dependence. nicotine patch. VTE: Lovenox Code: Full Dispo: anticipate SNF ~2-3 days
[2022-10-29 06:54] LABS: Absolute Lymphocytes (CBC) 1.4 K/uL (0.7-4.9); Hematocrit 23.9 % (39.6-49.0); Lymphocytes % 21.9 % (15.3-44.8); MCV 98.1 fL (80-100); MPV 8.4 fL (7.6-11.3); RBC Red Blood Cell Count 2.44 M/uL (4.33-5.43)
[2022-10-29 07:07] LABS: Potassium 3.6 mEq/L (3.5-5.1)
[2022-10-29] MEDS ORDERED: POTASSIUM CL SA 10 MEQ TAB PO ONE (07:30)
[2022-10-29] MEDS: FINASTERIDE 5 MG TAB PO SCH (07:38)
[2022-10-29] MEDS: DONEPEZIL HCL 5 MG TAB PO SCH (07:38)
[2022-10-29] MEDS: TAMSULOSIN 0.4 MG SR CAP PO SCH (07:38)
[2022-10-29] MEDS: ATORVASTATIN 20 MG TAB PO SCH (07:38)
[2022-10-29] MEDS: FERROUS SULFATE 325 MG TAB PO SCH ×2 (07:38→20:00)
[2022-10-29] MEDS: NICOTINE 21 MG/PAT TD SCH (07:39)
[2022-10-29] MEDS: HYDROCODONE/APAP 5/325 MG TAB PO PRN (07:40)
[2022-10-29] MEDS ORDERED: POTASSIUM 25 MEQ EFFERV TAB PO ONE (07:45)
--- NOTE | 2022-10-29 10:58 | RAD REPORT ---
EXAM DESCRIPTION: CT abdomen and pelvis with IV contrast CLINICAL HISTORY: 72 years Male hematuria, murillo catheter malfunction TECHNIQUE: Axial CT imaging of the abdomen and pelvis was performed following the administration of intravenous contrast.. Oral contrast was not administered. Sagittal and coronal reconstructed image s were then performed. The CT study is performed according to ALARA (as low as reasonably achievabl e) or ALARA/IMAGE GENTLY, with automatic adjustment of mA and/or kV according to patient size. Performed on: 10/27/2022 at 6:05 AM. COMPARISON: No prior studies were available for comparison. FINDINGS: Lung bases: The lung bases are clear. There is minimal bibasilar and lingular atelectasis and/or fibrosis. Liver: The liver is normal in size and configuration. No focal hepatic abnormalities are identified. Liver attenuation is within normal limits. The hepatic and portal veins are patent. Spleen: The spleen is normal in size, configuration and attenuation. Gallbladder and bile duct: The gallbladder is well distended and unremarkable. There is no biliary ductal dilatation. Pancreas: The pancreas is grossly normal in size and configuration. Adrenal Glands: The adrenal glands are normal in size and configuration. Kidneys: The kidneys are normal in size and configuration. There is no evidence of hydronephrosis. Th ere is a nonobstructing right renal nephrolithiasis and there are bilateral renal vascular calcificat ions. There are a few small sharply marginated hypodense renal mass lesions bilaterally most consiste nt with benign renal cysts. No follow-up imaging is recommended. Stomach: The stomach is grossly normal. There is no definite hiatal hernia. Bowel: The bowel gas pattern is non specific and non obstructive. Appendix: The appendix is normal. Free air: There is no evidence of free intraperitoneal air. Free fluid: There is no evidence of free fluid. Vasculature: The aorta is normal in caliber and contour. There are moderate atherosclerotic calcifica tions along the abdominal aorta and major branch vessels. The inferior vena cava is grossly unremarka ble. Lymphadenopathy: No pathologic lymphadenopathy is identified. Bladder: The bladder is well distended and smooth in contour. There is air in the bladder which may b e related to catheter manipulation. There is a large diverticulum arising from the left posterolatera l bladder wall measuring approximately 5.4 x 4.2 cm in cross-sectional diameter by approximately 5.4 cm in craniocaudal dimension. There is increased density in the region of the diverticulum orifice wh ich may be related to blood products. Reproductive: The prostate gland is grossly within normal limits. There is a Murillo catheter present. However, the balloon catheter is inflated in the urethra. There is air and increased density adjacent to the proximal catheter balloon which may be due to urethral trauma. Bones: There are recent postsurgical changes of the left femur consistent with open reduction and int ernal fixation utilizing an intramedullary erma and dynamic hip screws to stabilize an intertrochanter ic fracture. Soft tissues: There is soft tissue swelling and subcutaneous emphysema surrounding the left hip consi stent with recent postsurgical changes. IMPRESSION: 1. The Murillo catheter balloon catheter is inflated in the urethra. There is air and in creased density adjacent to the proximal catheter balloon which may be due to urethral trauma. 2. Large left posterolateral bladder wall diverticulum with increased density in the region of the diverticulum orifice which may be related to blood products. 3. Air in the bladder which may be iatrogenic in nature related to catheter manipulation. 4. Recent postsurgical changes of the left femur consistent with open reduction and internal fixati on utilizing an intramedullary rema and dynamic hip screws to stabilize an intertrochanteric fracture. 5. Moderate atherosclerotic calcifications along the abdominal aorta and major branch vessels. 6. Nonobstructing right renal nephrolithiasis. These findings were discussed with Dr. Redding on 10/27/2022 at 6:40 AM central time. Electronically signed by: Adriane Banuelos DO 10/27/2022 6:47 AM CDT Due to temporary technical issues with the PACS/Fluency reporting system, reports are being signed by the in house radiologists without review as a courtesy to insure prompt reporting. The interpreting radiologist is fully responsible for the content of the report.
[2022-10-29] MEDS ORDERED: NA CHLORIDE 0.9% 250 ML ONE (11:28)
--- NOTE | 2022-10-29 12:39 | RAD REPORT ---
EXAM DESCRIPTION: Head C Spine Mpr Wo Con CLINICAL HISTORY: 72 years Male fall COMPARISON: None TECHNIQUE: Images were obtained in axial, sagittal, and coronal planes. This exam was performed according to our departmental dose-optimization program which includes use of Automated Exposure Control, adjustment of the mA and/or kV according to patient size and/or use of i terative reconstruction technique. FINDINGS: CT brain: Ventricular system is age-appropriate in size. Moderate prominence of the cortic al sulci. No abnormal areas of increased attenuation seen. No extra-axial fluid collections noted. No evidence for skull fracture. Symmetric aeration mastoid air cells bilaterally. Unremarkable paranasa l sinuses. CT cervical spine: Height of the vertebral bodies is intact. Satisfactory alignment articular facets. Mild anterior osteophyte formation with degenerative fragmentation and multiple levels. Intact odont oid and predental space. Prevertebral soft tissues appear normal. Intact occipital condyles. Intact C 1. Posterior elements intact all levels. Chronic changes lung apices bilaterally. No focal disc protr usion. IMPRESSION: No acute intracranial abnormality. No evidence for hemorrhage, mass lesion, or large acu te infarction. No acute fracture or subluxation involving the cervical spine finding. Mild degenerative change. Electronically signed by: Layne Manrique MD 10/27/2022 1:10 AM CDT Due to temporary technical issues with the PACS/Fluency reporting system, reports are being signed by the in house radiologists without review as a courtesy to insure prompt reporting. The interpreting radiologist is fully responsible for the content of the report.
--- NOTE | 2022-10-29 12:41 | RAD REPORT ---
EXAM DESCRIPTION: Hip Left 2 View CLINICAL HISTORY: Fall TECHNIQUE: 2 views of the left hip are submitted. COMPARISON: None available for comparison FINDINGS: Patient is status post internal fixation of the left hip. Alignment is anatomic. Surgical changes in the overlying soft tissues. Atherosclerotic calcifications. IMPRESSION: Status post internal fixation of the left hip with anatomic alignment. Electronically signed by: Ervin Parra MD 10/27/2022 1:18 AM CDT Due to temporary technical issues with the PACS/Fluency reporting system, reports are being signed by the in house radiologists without review as a courtesy to insure prompt reporting. The interpreting radiologist is fully responsible for the content of the report.
[2022-10-29 17:10] LABS: Hematocrit 28.9 % (39.6-49.0)
[2022-10-29] MEDS: ENOXAPARIN 40 MG/0.4 ML SQ SCH (17:27)
[2022-10-29] MEDS: MELATONIN 5 MG TABLET PO PRN (20:00)
[2022-10-30 03:52] LABS: Absolute Lymphocytes (CBC) 1.7 K/uL (0.7-4.9); Hematocrit 27.1 % (39.6-49.0); MCV 95.8 fL (80-100); MPV 8.1 fL (7.6-11.3); RBC Red Blood Cell Count 2.83 M/uL (4.33-5.43)
[2022-10-30 04:06] LABS: Albumin 2.3 g/dL (3.4-5.0); Bilirubin Total 0.7 mg/dL (0.2-1.0); Potassium 3.9 mEq/L (3.5-5.1); Protein, Total 5.8 g/dL (6.4-8.2)
--- NOTE | 2022-10-30 06:57 | P.PN ---
Date of Service: 10/30/22 Subjective: feeling better today; slight confused urine is clearing up; no visible blood, andrew in color afebrile ROS: 10 point ROS as noted above, otherwise negative Physical Exam: GEN: Alert, oriented x2, NAD, dementia HEENT: Normal conjunctiva, sclera anicteric CV: Regular rate and rhythm, no edema Pulm: Nonlabored respirations on room air ABD: Soft,nontender, nondistended MSK: left hip dressing in place Integumentary: 1 cm superficial skin tear in the glutial cleft : Murillo in place; +andrew urine in the murillo tubing/bag, no visible blood seen; trace amount of red blood in briefs vitals reviewed Problem List: Left femoral fracture s/p fall, now s/p SUKI nail 10/26 Postoperative fever urethra/bladder trauma, acute urethra bleed, acute Dementia, mild-mod; chronic iron deficiency anemia, chronic hyperlipidemia BPH nicotine dependence Left femoral fracture, now s/p SUKI nail 10/26 s/p SUKI nail left hip 10/[address] Wild pain control, PT SCDs initially started and lovenox held for 24hrs due to hematuria Lovenox started 10/28 evening, with increased hematuria overnight after the following day cleared up as day went on with q4h irrigation remains mostly on clear side; slight pink tinged after he manipulates murillo / after working with PT Postoperative fever POD 2, 100.6, no new/worsening symptoms feeling better incentive spirometry CXR 10/28 - negative, stable from previous CXR possibly atelectasis, possibly pyretic response to surgery low threshold for antibiotics monitor closely; afebrile since 10/29 urethra/bladder trauma urethra bleed Patient seemed confused and was pulling his murillo frequently and noted blood in the urine and clots. 10/26 pm - Patient had a fall from standing. Nurses heard the bed alarm and walked into the room patient was seen standing and fell forward landing on the floor. No LOC reported, skin tear to LEFT forearm, small hematoma above RIGHT eyebrow CT head / cspine without acute findings after fall, noted increase hematuria; unable to deflate murillo balloon CT noted murillo bulb in urethra suspect patient pulled or during fall - lead to murillo pulled out and bulb pulled into urethra 6/ am, able to deflate bulb using guide wire through bulb tubing, suspect some blockage. did not need to perforate bulb with guide wire murillo removed and replaced with 20fr coude, which was advanced to hub; had good return of ~1000ml of dark red/maroon colored urine. balloon inflated. patient denied any discomfort, and felt better there was some resistance with insertion, I performed bedside U/S after insertion, appeared that bulb may be in distal urethra. CT ordered for confirmation CT abdomen (10/27): Murillo catheter bulb noted in prostatic urethra. Small adjacent air bubbles probably related to previous urethral intervention a left posterior Hutch diverticulum noted measuring 4 cm. Murillo catheter is in place with its tip barely entering the bladder lumen murillo bulb deflated and advanced, bedside U/S confirmed appropriate placement of bulb in bladder continue 60cc murillo irrigation q4h and PRN until urine clear/light pink no urology conflict resolution professional for next several days 10/29 noted more blood in urine, more dark red, no longer light pink tinged; after starting lovenox the night before Hemoglobin down to 8.1, will transfuse 1 unit PRBC (10/29). up to 9.2 (10/30) Discussed with family regarding risk/benefits, continue irrigation. 10/30 urine is clearing up, andrew in color, no visible blood seen from murillo Dementia. Continue donepezil Iron deficiency anemia, chronic Continue ferrous sulfate. Hyperlipidemia. Continue statin. BPH. Continue Flomax. Nicotine dependence. nicotine patch. VTE: Lovenox Code: Full Dispo: anticipate SNF ~2-3 days
[2022-10-30] MEDS: NICOTINE 21 MG/PAT TD SCH (08:55)
[2022-10-30] MEDS: ATORVASTATIN 20 MG TAB PO SCH (08:57)
[2022-10-30] MEDS: FINASTERIDE 5 MG TAB PO SCH (08:57)
[2022-10-30] MEDS: FERROUS SULFATE 325 MG TAB PO SCH ×2 (08:58→20:13)
[2022-10-30] MEDS: DONEPEZIL HCL 5 MG TAB PO SCH (08:58)
[2022-10-30] MEDS: TAMSULOSIN 0.4 MG SR CAP PO SCH (08:58)
[2022-10-30] MEDS ORDERED: POTASSIUM CL SA 10 MEQ TAB PO ONE (16:00)
[2022-10-30] MEDS: ENOXAPARIN 40 MG/0.4 ML SQ SCH (16:06)
[2022-10-30] MEDS: MIRTAZAPINE 15 MG TAB PO SCH (20:13)
[2022-10-30] MEDS: MELATONIN 5 MG TABLET PO PRN (20:14)
[2022-10-31 06:53] LABS: Absolute Lymphocytes (CBC) 1.4 K/uL (0.7-4.9); Hematocrit 31.7 % (39.6-49.0); Lymphocytes % 16.4 % (15.3-44.8); MCV 97.2 fL (80-100); MPV 8.3 fL (7.6-11.3); RBC Red Blood Cell Count 3.26 M/uL (4.33-5.43)
[2022-10-31 06:54] LABS: Albumin 2.5 g/dL (3.4-5.0); Bilirubin Total 0.7 mg/dL (0.2-1.0); Magnesium 2.2 mg/dL (1.6-2.4); Protein, Total 6.5 g/dL (6.4-8.2)
[2022-10-31] MEDS: NICOTINE 21 MG/PAT TD SCH (08:08)
[2022-10-31] MEDS: DONEPEZIL HCL 5 MG TAB PO SCH (08:08)
[2022-10-31] MEDS: FINASTERIDE 5 MG TAB PO SCH (08:08)
[2022-10-31] MEDS: FERROUS SULFATE 325 MG TAB PO SCH ×2 (08:09→20:16)
[2022-10-31] MEDS: TAMSULOSIN 0.4 MG SR CAP PO SCH (08:09)
[2022-10-31] MEDS: ATORVASTATIN 20 MG TAB PO SCH (08:10)
[2022-10-31] MEDS ORDERED: GLUCAGON 1 MG/VIAL IM PRN (08:29)
[2022-10-31] MEDS ORDERED: D50W 25 GM/50 ML SYRINGE IV PRN ×2 (08:29)
[2022-10-31] MEDS ORDERED: D10W 125 ML IV PRN (08:38)
[2022-10-31] MEDS ORDERED: INSULIN -REGULAR HUMAN 50 UNIT/0.5 ML ML IV ONE (08:40)
[2022-10-31] MEDS ORDERED: FUROSEMIDE 40 MG/4 ML VIAL IV ONE (08:40)
[2022-10-31] MEDS ORDERED: CALCIUM GLUCONATE 1 GM IVPB 2 GM/100 ML BAG IV ONE (08:45)
--- NOTE | 2022-10-31 14:40 | P.PN ---
Subjective Date of Service: 10/31/22 Chief Complaint: Left leg pain. No agitation reported since last night. Patient's hematuria is clearing. Good urine output. He has been tolerating diet. He has been afebrile. Physical Examination - Vital Signs Temperature: 98.1 F Blood Pressure: 160/71 Pulse: 78 Respirations: 18 Pulse Ox (%): 97 Assessment And Plan - Plan Physical Exam: GEN: Alert, oriented x2, NAD, dementia CV: Regular rate and rhythm, no edema Pulm: Nonlabored respirations on room air ABD: Soft,nontender, nondistended MSK: left hip dressing in place Integumentary: 1 cm superficial skin tear in the glutial cleft : Murillo in place; blood-tinged urine, no gross blood. vitals reviewed Problem List: Left femoral fracture s/p fall, now s/p SUKI nail 10/26 Postoperative fever urethra/bladder trauma, acute urethra bleed, acute Dementia, mild-mod; chronic iron deficiency anemia, chronic hyperlipidemia BPH nicotine dependence Left femoral fracture, now s/p SUKI nail 10/26 s/p SUKI nail left hip 10/[address] Wild pain control, PT Lovenox held for 24hrs due to hematuria Lovenox started 10/28 evening. Urine is clearing up. Continue PT. Postoperative fever POD 2, 100.6, no new/worsening symptoms. Single episode. feeling better incentive spirometry CXR 10/28 - negative, stable from previous CXR possibly atelectasis, possibly pyretic response to surgery Patient has been afebrile urethra/bladder trauma urethra bleed Patient seemed confused and was pulling his murillo frequently and noted blood in the urine and clots. 10/26 pm - Patient had a fall from standing. Nurses heard the bed alarm and walked into the room patient was seen standing and fell forward landing on the floor. No LOC reported, skin tear to LEFT forearm, small hematoma above RIGHT eyebrow CT head / cspine without acute findings after fall, noted increase hematuria; unable to deflate murillo balloon CT noted murillo bulb in urethra suspect patient pulled or during fall. Murillo removed and replaced with 20fr coude, which was advanced to hub; had good return of ~1000ml of dark red/maroon colored urine. balloon inflated. Patient denied any discomfort, and felt better but repeat CT showed Murillo catheter bulb noted in prostatic urethra. Small adjacent air bubbles probably related to previous urethral intervention. A left posterior Hutch diverticulum noted measuring 4 cm. Murillo catheter is in place with its tip barely entering the bladder lumen. Murillo bulb was deflated and advanced, bedside U/S confirmed appropriate placement of bulb in bladder Status post bladder irrigation. Urology consulted. Hemoglobin dropped to 8.1, status post 1 unit PRBC transfusion. Posttransfusion hemoglobin is up to 10. Urine is clearing up and currently only blood-tinged Dementia. Continue donepezil Iron deficiency anemia, chronic Continue ferrous sulfate. Hyperlipidemia. Continue statin. BPH. Continue Flomax. Nicotine dependence. nicotine patch. Anticipating disposition to skilled rehab.
--- NOTE | 2022-10-31 17:21 | P.CNS ---
Date of Consult: 10/31/22 Reason for Consult: Gross hematuria, catheter trauma, urinary retention Requesting Physician: Pravin Redding Chief Complaint: Left leg pain. History of Present Illness: 72-year-old gentleman with severe dementia, hypertension, hyperlipidemia, nicotine dependence, initially seen via the emergency department with complaints of left hip pain. He was confused at baseline and unable to provide any significant history at the time of his initial evaluation. His daughter informed that he was found sitting on a ladder on the day of his admission. They reported he fell and crawled to the ladder where he sat down. 10/25/2022: Sodium 137, BUN 29, creatinine 0.89, glucose 109, WBC 14.6, hemoglobin/hematocrit 11.6/35.2, platelets 218. He was on Flomax 0.4 mg daily as well as finasteride 5 mg daily. A left femur fracture was noted and orthopedics was consulted. He underwent an orthopedic surgical procedure 10/26/2022 SUKI nail of his left hip with Dr. Wild, and apparently patient suffered a fall from standing on the evening of surgery suffering a slight abrasion to the left forearm and hematoma above his right elbow. After the fall, significant increased hematuria was noted, and they were unable to deflate the Bear catheter balloon. CT scan noted the Bear catheter bulb was in the prostatic urethra. 10/27/2022 CT abdomen and pelvis with IV contrast findings: Adrenals normal in size and configuration. Kidneys normal without hydronephrosis. Nonobstructing right nephrolithiasis noted as well as bilateral renal vascular calcifications. Hypodense renal lesions bilaterally consistent with benign cysts. No pathologic lymphadenopathy identified. Bladder was distended and smooth in contour. Large diverticulum arising from the left posterior lateral bladder wall measuring 5.4 x 4.2 cm. Prostate gland within normal limits but Bear catheter balloon inflated in the urethra. Because of the gross hematuria, urinary retention, and findings on the CT scan above, I was consulted remotely, while on vacation, and did discuss the case and made recommendations. They had tried to deflate the balloon without success, even cutting the catheter balloon port hub without success in draining/deflating the balloon. As a result, I recommended Dr. Redding utilize the stiff end of a central line wire placed via the cut hub of the balloon port to try to rupture the Bear catheter balloon and remove it. He did so successfully, and afterwards I recommended he promptly place a 20 [place] coud tipped urethral Bear catheter. This was done, initially with the balloon inflated still within the prostatic urethra, but he was subsequently able to deflate the balloon and manipulated further with my instructions, successfully placing the catheter with the balloon situated appropriately within the bladder. Since that time, he underwent some intermittent bladder irrigations, and his hemoglobin did drop to 8.1. He received 1 unit PRBCs, and his posttransfusion hemoglobin increased to 10. Past medical history: Hypertension, hyperlipidemia, dementia Smoking history: Significant, greater than 10 cigarettes/day No known drug allergies Medication list reviewed Examination: Alert and awake, oriented to person only No dyspnea or sign of respiratory distress No cervical/supraclavicular adenopathy Abdomen soft, nontender, nondistended Genitalia: Uncircumcised without lesion, orthotopic meatus with urethral Bear catheter in place draining clear yellow urine. Scrotum normal without crepitus. Lying in the hospital bed Assessment, counseling and recommendations: 72-year-old gentleman with Alzheimer's dementia, hypertension, hyperlipidemia, presumptive BPH with LUTS on Flomax plus finasteride x2.5 years, and history of chronic significant smoking p fall with left femur/hip fracture s/p orthopedic fixation/nail stabilization 10/26/2022 with subsequent fall postoperatively and traction based catheter dislodgment into the urethra causing gross hematuria and acute urinary retention, p balloon deflation and 20 [place] coud tip catheter reinsertion, now with clear yellow urine. -Given the 800 to 1000 cc of urinary retention that occurred on last Sunday into Sunday, I counseled the patient and his daughter, who has power of trust and estates attorney, that we would typically recommend at least 1 week of bladder rest before voiding trial should be attempted. -Continue tamsulosin + finasteride at this time -Voiding trial on 11/03/2022, at 2 AM - catheter should be removed. Patient should then be allowed the next 6 hours to void, preferably into a urinal: If patient unable to void within the 6-hour period of time, obtain an 18 [place] coud tip catheter and a catheter insertion kit, and notify me by 9 AM to reinsert the catheter. If patient able to void during that time, perform bladder scan postvoid residual assessment. If his void volume is less than his postvoid residual, prepare as above for catheter to be replaced. If his postvoid residual is > 250-300 cc, notify me and prepare for catheter to be reinserted as above. -Follow-up in my office within the next month/30 days for cystoscopic evaluation of his gross hematuria given his history of smoking. -If not actively on any antimicrobials, a single dose of oral antimicrobial prophylaxis may be provided at the time of the voiding trial on Sunday morning with either Bactrim DS or Macrobid/nitrofurantoin 100 mg x 1 dose. Allergies No Known Allergies Allergy (Unverified 10/25/22 17:21) Home medications list reviewed: Yes Home Medications: Atorvastatin Calcium 20 mg PO DAILY 10/25/22 Donepezil HCl [Aricept] 10 mg PO DAILY 10/25/22 Ferrous Sulfate [Iron] 325 mg PO BID 10/25/22 Finasteride [Proscar*] 5 mg PO DAILY 10/25/22 Lisinopril [Zestril] 30 mg PO DAILY 10/25/22 Tamsulosin HCl [Flomax] 0.4 mg PO DAILY 10/25/22 Ensure High Protein 237 ml PO TID 10/29/22 Mirtazapine [Remeron] 0.5 tab PO BEDTIME 10/29/22 - Past Medical/Surgical History Diabetic: No -: BPH -: PIYUSH -: HLD -: HTN - Social History Smoking Status: Unknown if ever smoked Alcohol use: Yes CD- Drugs: No Caffeine use: Yes Place of Residence: Home Physical Examination Temp Pulse Resp BP Pulse Ox 98.3 F 72 18 141/71 H 98 10/31/22 16:00 10/31/22 16:00 10/31/22 16:00 10/31/22 16:00 10/31/22 16:00 - Problems (1) Gross hematuria Current Visit: Yes Status: Acute (2) BPH loc w urin obs/LUTS Current Visit: Yes Status: Acute (3) Urethral trauma Current Visit: Yes Status: Acute Conclusions/Impression: See HPI Critical Care: No Time Spent Managing Pts care (In Minutes): 55
[2022-10-31] MEDS: ENOXAPARIN 40 MG/0.4 ML SQ SCH (17:22)
[2022-10-31] MEDS: MIRTAZAPINE 15 MG TAB PO SCH (20:16)
[2022-10-31] MEDS: ENSURE SURGERY 237 ML CAN PO SCH ×2 (20:17→20:22)
[2022-11-01 04:57] LABS: Absolute Lymphocytes (CBC) 1.6 K/uL (0.7-4.9); Hematocrit 29.1 % (39.6-49.0); Lymphocytes % 18.7 % (15.3-44.8); MCV 96.8 fL (80-100); MPV 7.5 fL (7.6-11.3); RBC Red Blood Cell Count 3.01 M/uL (4.33-5.43)
[2022-11-01 05:28] LABS: Albumin 2.3 g/dL (3.4-5.0); Bilirubin Total 0.8 mg/dL (0.2-1.0); Magnesium 2.1 mg/dL (1.6-2.4); Potassium 3.7 mEq/L (3.5-5.1); Protein, Total 6.1 g/dL (6.4-8.2)
[2022-11-01] MEDS ORDERED: POTASSIUM CL SA 10 MEQ TAB PO ONE (08:00)
[2022-11-01] MEDS: ENSURE SURGERY 237 ML CAN PO SCH ×2 (09:00→20:56)
[2022-11-01] MEDS ORDERED: POTASSIUM 25 MEQ EFFERV TAB PO ONE (09:00)
[2022-11-01] MEDS: FINASTERIDE 5 MG TAB PO SCH (09:12)
[2022-11-01] MEDS: TAMSULOSIN 0.4 MG SR CAP PO SCH (09:12)
[2022-11-01] MEDS: FERROUS SULFATE 325 MG TAB PO SCH ×2 (09:12→20:50)
[2022-11-01] MEDS: DONEPEZIL HCL 5 MG TAB PO SCH (09:12)
[2022-11-01] MEDS: ATORVASTATIN 20 MG TAB PO SCH (09:13)
[2022-11-01] MEDS: NICOTINE 21 MG/PAT TD SCH (09:13)
--- NOTE | 2022-11-01 16:05 | P.PN ---
Subjective Date of Service: 11/01/22 Chief Complaint: Left leg pain. No issues overnight. Patient is finishing his meals Hematuria has cleared, patient urine looks clear. Good urine output. Physical Examination - Vital Signs Temperature: 98.9 F Blood Pressure: 111/66 Pulse: 93 Respirations: 14 Pulse Ox (%): 98 Assessment And Plan - Plan Physical Exam: GEN: Alert, oriented x2, NAD, dementia CV: Regular rate and rhythm, no edema Pulm: Nonlabored breathing, clear to auscultation bilaterally ABD: Soft,nontender, nondistended MSK: left hip dressing in place Integumentary: 1 cm superficial skin tear in the glutial cleft : Murillo in place; urine is clear. vitals reviewed Problem List: Left femoral fracture s/p fall, now s/p SUKI nail 10/26 Postoperative fever urethra/bladder trauma, acute urethra bleed, acute Dementia, mild-mod; chronic iron deficiency anemia, chronic hyperlipidemia BPH nicotine dependence Left femoral fracture, now s/p SUKI nail 10/26 s/p SUKI nail left hip 10/[address] Wild pain control, PT Lovenox held for 24hrs due to hematuria Lovenox started 10/28 evening. Urine is cleared Continue PT. Postoperative fever POD 2, 100.6, no new/worsening symptoms. Single episode. feeling better incentive spirometry CXR 10/28 - negative, stable from previous CXR possibly atelectasis, possibly pyretic response to surgery Patient has been afebrile urethra/bladder trauma urethra bleed Patient seemed confused and was pulling his murillo frequently and noted blood in the urine and clots. 10/26 pm - Patient had a fall from standing. Nurses heard the bed alarm and walked into the room patient was seen standing and fell forward landing on the floor. No LOC reported, skin tear to LEFT forearm, small hematoma above RIGHT eyebrow CT head / cspine without acute findings after fall, noted increase hematuria; unable to deflate murillo balloon CT noted murillo bulb in urethra suspect patient pulled or during fall. Murillo removed and replaced with 20fr coude, which was advanced to hub; had good return of ~1000ml of dark red/maroon colored urine. balloon inflated. Patient denied any discomfort, and felt better but repeat CT showed Murillo cath eter bulb noted in prostatic urethra. Small adjacent air bubbles probably related to previous urethral intervention. A left posterior Hutch diverticulum noted measuring 4 cm. Murillo catheter is in place with its tip barely entering the bladder lumen. Murillo bulb was deflated and advanced, bedside U/S confirmed appropriate placement of bulb in bladder Status post bladder irrigation. Urology consulted. Dr. Haskins recommending voiding trial within the next couple of days. Hemoglobin dropped to 8.1, status post 1 unit PRBC transfusion. Hemoglobin has been stable since transfusion. Dementia. Continue donepezil Iron deficiency anemia, chronic Continue ferrous sulfate. Hyperlipidemia. Continue statin. BPH. Continue Flomax and finasteride. Nicotine dependence. nicotine patch. Anticipating disposition to skilled rehab.
[2022-11-01] MEDS: ENOXAPARIN 40 MG/0.4 ML SQ SCH (17:27)
[2022-11-01] MEDS: MIRTAZAPINE 15 MG TAB PO SCH (20:51)
[2022-11-02] MEDS: ENSURE SURGERY 237 ML CAN PO SCH ×2 (09:00→21:00)
[2022-11-02] MEDS: FINASTERIDE 5 MG TAB PO SCH (09:08)
[2022-11-02] MEDS: ATORVASTATIN 20 MG TAB PO SCH (09:09)
[2022-11-02] MEDS: FERROUS SULFATE 325 MG TAB PO SCH ×2 (09:09→21:30)
[2022-11-02] MEDS: DONEPEZIL HCL 5 MG TAB PO SCH (09:09)
[2022-11-02] MEDS: TAMSULOSIN 0.4 MG SR CAP PO SCH (09:09)
[2022-11-02] MEDS: NICOTINE 21 MG/PAT TD SCH (09:10)
--- NOTE | 2022-11-02 12:00 | P.DS ---
Admission Date: 10/25/22 Discharge Date: 11/02/22 Disposition: TRANSFER TO INTERMEDIATE Discharge Condition: FAIR Reason for Admission: Left leg pain. Brief History of Present Illness: Patient is a 72-year-old male with a past medical history significant for dementia, hypertension, hyperlipidemia, nicotine dependence who presented with complaint of left hip pain. Patient was alert and oriented x1 and was unable to provide any history. Per patient's daughter report patient was found sitting on a ladder this morning. Family reported that patient fell and crawled to a stair case where he sat down. 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 Patient's daughter was informed and daughter came and found patient sitting on the stairs. Family reported that patient is able to stand up but unable to walk. Patient denied hitting his head or losing consciousness. Femur x-ray done in the ED showed impacted left mid to distal cervical femoral neck fracture. Orthopedic surgeon Dr. Wild was contacted who recommended ORIF. Patient was hospitalized for further management. Hospital Course: Diagnosis Left femoral fracture s/p fall, now s/p SUKI nail 10/26 Postoperative fever urethra/bladder trauma, acute urethra bleed, acute Dementia, mild-mod; chronic iron deficiency anemia, chronic hyperlipidemia BPH nicotine dependence Left femoral fracture, now s/p SUKI nail 10/26 s/p SUKI nail left hip 10/[address] Wild pain control, PT Lovenox held for 24hrs due to hematuria and restarted for DVT prophylaxis Hematuria resolved. Patient underwent PT sessions. Patient discharged with Xarelto for DVT prophylax. Follow-up with Dr. Wild as outpatient. Postoperative fever POD 2, 100.6, no new/worsening symptoms. Single episode. Likely due to atelectasis. CXR 10/28 - negative, stable from previous CXR Patient has been afebrile urethra/bladder trauma urethra bleed Patient seemed confused and was pulling his murillo frequently and noted blood in the urine and clots. 10/26 pm - Patient had a fall from standing. Nurses heard the bed alarm and walked into the room patient was seen standing and fell forward landing on the floor. No LOC reported, skin tear to LEFT forearm, small hematoma above RIGHT eyebrow CT head / cspine without acute findings after fall, noted increase hematuria; unable to deflate murillo balloon CT noted murillo bulb in urethra suspect patient pulled or during fall. Murillo removed and replaced with 20fr coude, which was advanced to hub. CT pelvis showed a left posterior Hutch diverticulum noted measuring 4 cm. Murillo catheter reinserted and bladder irrigated intermittently Status post bladder irrigation. Urology consulted, patient seen by Dr. Haskins. Hematuria cleared, patient had good urine output. Hemoglobin dropped to 8.1, status post 1 unit PRBC transfusion. Hemoglobin has been stable since transfusion. Murillo catheter removed for voiding trial, patient Dementia. Continued donepezil. No agitation over the last few days. Iron deficiency anemia, chronic Continued ferrous sulfate. Hyperlipidemia. Continued statin. BPH. Continued Flomax and finasteride. Nicotine dependence. nicotine patch. Vital Signs/Physical Exam: Temp Pulse Resp BP Pulse Ox 98.6 F 62 16 146/68 H 96 11/02/22 11:50 11/02/22 11:50 11/02/22 11:50 11/02/22 11:50 11/02/22 11:50 General: Other (Awake, dementia) HEENT: Mucous membr. moist/pink Neck: JVD not distended Respiratory: Clear to auscultation bilaterally, Normal air movement Cardiovascular: Regular rate/rhythm, Normal S1 S2 Gastrointestinal: Normal bowel sounds, Soft and benign, Non-distended Musculoskeletal: No tenderness Integumentary: No cyanosis Neurological: Other (No focal motor deficit) Laboratory Data at Discharge: WBC 8.50 thou/uL (4.3-10.9) 11/01/22 04:34 Hgb 9.5 g/dL (13.6-17.9) L 11/02/22 03:00 Hct 28.0 % (39.6-49.0) L 11/02/22 03:00 Plt Count 300 thou/uL (152-406) 11/01/22 04:34 PT 11.2 SECONDS (9.5-12.5) 10/25/22 12:52 INR 1.02 10/25/22 12:52 Sodium 139 mEq/L (136-145) 11/01/22 04:34 Potassium 3.7 mEq/L (3.5-5.1) 11/01/22 04:34 BUN 26 mg/dL (7-18) H 11/01/22 04:34 Creatinine 0.48 mg/dL (0.70-1.30) L 11/01/22 04:34 Glucose 98 mg/dL (74-106) 11/01/22 04:34 Phosphorus 2.6 mg/dL (2.5-4.9) 10/25/22 12:52 Magnesium 2.1 mg/dL (1.6-2.4) 11/01/22 04:34 Total Bilirubin 0.8 mg/dL (0.2-1.0) 11/01/22 04:34 AST 24 U/L (15-37) 11/01/22 04:34 ALT 37 U/L (16-61) 11/01/22 04:34 Alkaline Phosphatase 45 U/L (45-117) 11/01/22 04:34 Triglycerides 72 mg/dL (<150) 10/26/22 02:05 Cholesterol 122 mg/dL (<200) 10/26/22 02:05 HDL Cholesterol 46 mg/dL (40-60) 10/26/22 02:05 Cholesterol/HDL Ratio 2.65 10/26/22 02:05 Home Medications: Atorvastatin Calcium 20 mg PO DAILY 10/25/22 Donepezil HCl [Aricept] 10 mg PO DAILY 10/25/22 Ferrous Sulfate [Iron] 325 mg PO BID 10/25/22 Finasteride [Proscar*] 5 mg PO DAILY 10/25/22 Lisinopril [Zestril] 30 mg PO DAILY 10/25/22 Tamsulosin HCl [Flomax] 0.4 mg PO DAILY 10/25/22 Ensure High Protein 237 ml PO TID 10/29/22 Mirtazapine [Remeron*] 0.5 tab PO BEDTIME 10/29/22 Hydrocodone 5/APAP 325 [[place] 5/325*] 1 tab PO Q6H PRN #15 tab 11/02/22 Melatonin 5 mg PO BEDTIME PRN PRN 11/02/22 Nicotine [Nicoderm*] 21 mg TD DAILY 11/02/22 Rivaroxaban [Xarelto] 10 mg PO DAILY #30 tab 11/02/22 New Medications: Hydrocodone 5/APAP 325 [[place] 5/325*] 1 tab PO Q6H PRN #15 tab PRN Reason: Pain Scale 5-7 (Moderate) Rivaroxaban [Xarelto] 10 mg PO DAILY #30 tab Diet: AHA Activity: Fall precautions Followup: Brandon Wild MD [ACTIVE - CAN ADMIT] - (Within 3 weeks.) NONE,NONE [Primary Care Provider] - Sukhjinder Haskins [ACTIVE - CAN ADMIT] - (Within 1 month) Time spent managing pt's care (in minutes): 40
[2022-11-02] MEDS: ENOXAPARIN 40 MG/0.4 ML SQ SCH (17:56)
--- NOTE | 2022-11-02 18:45 | P.PN ---
Subjective Date of Service: 11/02/22 Chief Complaint: Left leg pain. No issues overnight. No hematuria, urine is clear. Good urine output over the past 24 hours. Physical Examination - Vital Signs Temperature: 98.7 F Blood Pressure: 150/83 Pulse: 84 Respirations: 18 Pulse Ox (%): 98 Assessment And Plan - Plan Physical Exam: GEN: Alert, oriented x2, NAD, dementia CV: Regular rate and rhythm, no edema Pulm: Nonlabored breathing, clear to auscultation bilaterally ABD: Soft,nontender, nondistended MSK: left hip dressing in place Integumentary: 1 cm superficial skin tear in the glutial cleft : Murillo in place; urine is clear. vitals reviewed Problem List: Left femoral fracture s/p fall, now s/p SUKI nail 10/26 Postoperative fever urethra/bladder trauma, acute urethra bleed, acute Dementia, mild-mod; chronic iron deficiency anemia, chronic hyperlipidemia BPH nicotine dependence Left femoral fracture, now s/p SUKI nail 10/26 s/p SUKI nail left hip 10/[address] Wild pain control, PT Lovenox held for 24hrs due to hematuria Lovenox started 10/28 evening. Urine is cleared Continue PT. Postoperative fever POD 2, 100.6, no new/worsening symptoms. Single episode. feeling better incentive spirometry CXR 10/28 - negative, stable from previous CXR possibly atelectasis, possibly pyretic response to surgery Patient has been afebrile urethra/bladder trauma urethra bleed Patient seemed confused and was pulling his murillo frequently and noted blood in the urine and clots. 10/26 pm - Patient had a fall from standing. Nurses heard the bed alarm and walked into the room patient was seen standing and fell forward landing on the floor. No LOC reported, skin tear to LEFT forearm, small hematoma above RIGHT eyebrow CT head / cspine without acute findings after fall, noted increase hematuria; unable to deflate murillo balloon CT noted murillo bulb in urethra suspect patient pulled or during fall. Murillo removed and replaced with 20fr coude, which was advanced to hub; had good return of ~1000ml of dark red/maroon colored urine. balloon inflated. Patient denied any discomfort, and felt better but repeat CT showed Murillo catheter bulb noted in prostatic urethra. Small adjacent air bubbles probably related to previous urethral intervention. A left posterior Hutch diverticulum noted measuring 4 cm. Murillo catheter is in place with its tip barely entering the bladder lumen. Murillo bulb was deflated and advanced, bedside U/S confirmed appropriate placement of bulb in bladder Status post bladder irrigation. Urology Dr. Haskins is following. Voiding trial today. DC to skilled rehab once patient is able to void. Hemoglobin dropped to 8.1, status post 1 unit PRBC transfusion. Hemoglobin has been stable since transfusion. Dementia. Continue donepezil Iron deficiency anemia, chronic Continue ferrous sulfate. Hyperlipidemia. Continue statin. BPH. Continue Flomax and finasteride. Nicotine dependence. nicotine patch.
[2022-11-02] MEDS: MIRTAZAPINE 15 MG TAB PO SCH (21:29)
[2022-11-03 07:31] LABS: Hematocrit 30.3 % (39.6-49.0)
[2022-11-03 07:46] LABS: Potassium 3.5 mEq/L (3.5-5.1)
[2022-11-03] MEDS: DONEPEZIL HCL 5 MG TAB PO SCH (08:23)
[2022-11-03] MEDS: NICOTINE 21 MG/PAT TD SCH (08:23)
[2022-11-03] MEDS: ATORVASTATIN 20 MG TAB PO SCH (08:23)
[2022-11-03] MEDS: FINASTERIDE 5 MG TAB PO SCH (08:23)
[2022-11-03] MEDS: TAMSULOSIN 0.4 MG SR CAP PO SCH (08:23)
[2022-11-03] MEDS: FERROUS SULFATE 325 MG TAB PO SCH (08:23)
[2022-11-03] MEDS: ENSURE SURGERY 237 ML CAN PO SCH (08:24)
[2022-11-03 08:59] VITALS: O2SAT 97
[2022-11-03 11:57] VITALS: BP 138/66; TEMP 98.7
== END 2022-11-03 12:53 | DRG 482 ==
LOC: ER 12:07 → ERHOLD 16:21 → 2ND 10-26 10:52
PROVIDERS: ADMIT Hospitalist; ATTEND Internal Medicine
PROC: 0QS736Z Reposition Left Upper Femur with Intramedullary Internal Fixation Device, Percutaneous Approach (ICD-10-PCS; principal; 2022-10-26 11:30)
PROC: 30233N1 Transfusion of Nonautologous Red Blood Cells into Peripheral Vein, Percutaneous Approach (ICD-10-PCS; 2022-10-29)
DX: S72.142A Displaced intertrochanteric fracture of left femur, initial encounter for closed fracture (principal); I10 Essential (primary) hypertension; D50.9 Iron deficiency anemia, unspecified; E78.00 Pure hypercholesterolemia, unspecified; D72.829 Elevated white blood cell count, unspecified; N40.1 Benign prostatic hyperplasia with lower urinary tract symptoms; G30.9 Alzheimer's disease, unspecified; F02.B0 Dementia in other diseases classified elsewhere, moderate, without behavioral disturbance, psychotic disturbance, mood disturbance, and anxiety; F17.210 Nicotine dependence, cigarettes, uncomplicated; R58 Hemorrhage, not elsewhere classified; R33.8 Other retention of urine; R31.0 Gross hematuria; R50.82 Postprocedural fever; Z79.899 Other long term (current) drug therapy; W18.30XA Fall on same level, unspecified, initial encounter; Y93.9 Activity, unspecified; Y92.019 Unspecified place in single-family (private) house as the place of occurrence of the external cause; Y99.9 Unspecified external cause status; Z79.01 Long term (current) use of anticoagulants
CPT/HCPCS: 36415; 36430; 70450; 71045; 72125; 72170; 74176; 74177; 80048; 80053; 80061; 81001; 82550; 83036; 83735; 84100; 85014; 85018; 85025; 85610; 86850; 86900; 86901; 86920; 94010; 94760; 96374; 96375; 97110; 97116; 97161; 97530; 99285; J0171; J0360; J0610; J0690; J1100; J1630; J1650; J2001; J2405; J2704; J7030; J7050; J7120; P9016; Q9967